=== PATIENT | female | born 1940 | race Caucasian/White ===

== ENCOUNTER 2019-10-12 17:16 | Inpatient (IN) | payer MEDICAID, OTHER ==
[~2019-10-12] VITALS: Ht 170.2 cm; Wt 57.0 kg
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
[2019-10-12 18:13] LABS: MICROSCOPIC INDICATED
[2019-10-12 18:14] LABS: CULTURE INDICATED? YES
[2019-10-12] MEDS ORDERED: SODIUM CHLORIDE 0.9% 1,000ML IVBOLUS ONE (18:30)
[2019-10-12] MEDS ORDERED: SODIUM CHLORIDE FLUSH 10ML SYR IVF ONE (18:30)
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
[2019-10-12 19:05] LABS: ALBUMIN 2.8 g/dL (3.4-5.0); ANION GAP 7 mmol/L (5-15); CALCIUM 8.6 mg/dL (8.5-10.1); CHLORIDE 101 mmol/L (98-107)
[2019-10-12 19:09] LABS: ALANINE AMINOTRANSFERASE 23 U/L (12-78); ALKALINE PHOSPHATASE 160 U/L (45-117); BASOPHILS # (AUTO) 0.03 x10^3/uL (0-0.1); BASOPHILS % (AUTO) 0 % (0-1); BILIRUBIN,TOTAL 0.7 mg/dL (0.2-1.0); CREATININE 0.86 mg/dL (0.55-1.02); EOSINOPHILS # (AUTO) 0.01 x10^3/uL (0-0.4); EOSINOPHILS % (AUTO) 0 % (1-7); LYMPHOCYTES # (AUTO) 1.29 x10^3/uL (1-3.4); LYMPHOCYTES % (AUTO) 12 % (22-44); MD NO; MEAN CORPUSCULAR HEMOGLOBIN 24.2 pg (27.0-34.8); MEAN CORPUSCULAR HGB CONC 31.9 g/dL (32.4-35.8); MEAN CORPUSCULAR VOLUME 76.1 fL (80-100); MEAN PLATELET VOLUME 8.7 fL (7.4-10.4); MONOCYTES # (AUTO) 0.72 x10^3/uL (0.2-0.8); MONOCYTES % (AUTO) 7 % (2-9); NEUTROPHILS % (AUTO) 81 % (42-75); PLATELET COUNT 203 x10^3/uL (130-400); RED BLOOD COUNT 5.99 x10^6/uL (3.82-5.3); RED CELL DISTRIBUTION WIDTH 22.3 % (9.6-15.2); TOTAL PROTEIN 6.8 g/dL (6.4-8.2)
[2019-10-12] MEDS ORDERED: CEFTRIAXONE PMX 1GM/50ML 50 ML ONE (19:46)
[2019-10-12] MEDS ORDERED: CEFTRIAXONE PMX 1GM/50ML 50 ML IVPB ONE (20:00)
--- NOTE | 2019-10-12 20:00 | NUR ---
DELAY IN ABX START FOR BC
--- NOTE | 2019-10-12 20:22 | NUR ---
OSTOMY CARE COMPLETE. STOMA PINK. NO WOUNDS NOTED. AWAITING BCX2 FOR ABX Addendum: 10/13/19 at 0500 by CANDICE PATIENT PLACED ON [facility]
--- NOTE | 2019-10-12 20:36 | NUR ---
ABX INITIATED. BC X2 DRAWN PRIOR TO ADMIN
--- NOTE | 2019-10-12 21:34 | NUR ---
PT REPORTS "NOT FEELING WELL". FSBS 55. AWAKE/ALERT, GIVEN PO JUICE
[2019-10-12] MEDS: HEPARIN 5,000 UNITS/ML, 1ML SQ SCH (22:00)
[2019-10-12] MEDS ORDERED: BISACODYL 10 MG SUPP PR PRN (22:00)
[2019-10-12] MEDS ORDERED: POLYETHYLENE GLYCOL 17 GM PACKET PO PRN (22:00)
--- NOTE | 2019-10-12 22:13 | NUR ---
PT TOLERATING PO FOOD/FLUIDS, REPEAT FS 111
[2019-10-12] MEDS ORDERED: ACET325T14 PO (22:31)
[2019-10-12] MEDS ORDERED: ATOR80TA PO (22:31)
[2019-10-12] MEDS ORDERED: METO200T47 PO (22:31)
[2019-10-12] MEDS ORDERED: ONDA4TAB7 PO (22:31)
[2019-10-12] MEDS ORDERED: PROM25VI5 PO (22:31)
[2019-10-12] MEDS ORDERED: ASPI-515 PO (22:31)
[2019-10-12] MEDS ORDERED: POLY17PO5 PO (22:31)
[2019-10-12] MEDS ORDERED: INSU100V8 SQ (22:31)
[2019-10-12] MEDS ORDERED: OMEP20TA62 PO (22:31)
[2019-10-12] MEDS ORDERED: GABA300C10 PO (22:31)
[2019-10-12] MEDS ORDERED: OXYC5CAP2 PO (22:31)
[2019-10-12] MEDS ORDERED: DOCU-131 PO (22:31)
[2019-10-12] MEDS ORDERED: EMPA10TA PO (22:31)
[2019-10-12] MEDS ORDERED: INSU100C5 SQ-INSULIN (22:31)
--- NOTE | 2019-10-12 22:32 | NUR ---
PT RESTING W/ EYES CLOSED. EVEN/REGULAR RESPIRATIONS NOTED.
[2019-10-13] MEDS ORDERED: ONDANSETRON 2MG/ML, 2ML ONE ×3 (00:50→13:14)
[2019-10-13] MEDS ORDERED: HEPARIN 5,000 UNITS/ML, 1ML ONE (00:51)
[2019-10-13] MEDS: SODIUM CHLORIDE 0.9% 1,000 ML IV SCH ×2 (00:53→16:57)
[2019-10-13] MEDS: ONDANSETRON 2MG/ML, 2ML IVPush PRN ×4 (00:54→20:30)
--- NOTE | 2019-10-13 00:59 | NUR ---
PT MEDICATED PER EMAR FOR NAUSEA.
--- NOTE | 2019-10-13 01:00 | NUR ---
PT TO ROOM 18 VIA ABRIL FOR HOLD IN ED. REPORT TO AYLIN Bonilla RN
--- NOTE | 2019-10-13 01:13 | NUR ---
REPORT RECEIVED FROM ARIELLE LANDRY. PLAN OF CARE DISCUSSED. PATIENT MOVED FROM ROOM 27 TO 18
--- NOTE | 2019-10-13 02:34 | NUR ---
PATIENT RESTING ON GURNEY, DESAT TO 89% WHILE SLEEPING, PLACED ON 1.5L NC UP TO 99%. RESPIRATIONS EVEN AND UNLABORED. DENIES NEEDS AT THIS TIME
[2019-10-13] MEDS ORDERED: ACETAMINOPHEN 325 MG TABLET ONE ×2 (03:05→11:11)
[2019-10-13] MEDS: ACETAMINOPHEN 325 MG TABLET PO PRN ×3 (03:08→20:22)
--- NOTE | 2019-10-13 03:09 | NUR ---
PATIENT MEDICATED PER EMAR WITH PRN TYLENOL FOR BACK PAIN. TOELRATED WELL. PATIENT REPOSITIONED TO LEFT SIDE LAYING POSITION, DENIES WANTING PILLOW SUPPORT.
--- NOTE | 2019-10-13 04:04 | NUR ---
PATIENT RESTING, RESPIRATIONS EVEN AND UNLABORED. VSS, CALL LIGHT IN REACH
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
[2019-10-13] MEDS: HEPARIN 5,000 UNITS/ML, 1ML SQ SCH ×3 (06:00→21:57)
--- NOTE | 2019-10-13 06:40 | NUR ---
PATIENT GIVEN PRN ZOFRAN FOR NAUSEA
--- NOTE | 2019-10-13 07:06 | NUR ---
REPORT FROM NOC RN, ASSUMED CARE OF PT, VSS. NAD NOTED
--- NOTE | 2019-10-13 07:06 | NUR ---
REPORT GIVEN TO ARIELLE ANDERSON. PLAN OF CARE DISCUSSED.
[2019-10-13 07:46] LABS: ANION GAP 8 mmol/L (5-15); CALCIUM 8.1 mg/dL (8.5-10.1); CHLORIDE 104 mmol/L (98-107)
[2019-10-13 07:48] LABS: CREATININE 0.58 mg/dL (0.55-1.02)
[2019-10-13 07:50] LABS: BASOPHILS # (AUTO) 0.01 x10^3/uL (0-0.1); BASOPHILS % (AUTO) 0 % (0-1); EOSINOPHILS # (AUTO) 0.04 x10^3/uL (0-0.4); EOSINOPHILS % (AUTO) 0 % (1-7); LYMPHOCYTES # (AUTO) 0.75 x10^3/uL (1-3.4); LYMPHOCYTES % (AUTO) 9 % (22-44); MD NO; MEAN CORPUSCULAR HEMOGLOBIN 24.5 pg (27.0-34.8); MEAN CORPUSCULAR HGB CONC 31.9 g/dL (32.4-35.8); MEAN CORPUSCULAR VOLUME 76.8 fL (80-100); MEAN PLATELET VOLUME 8.3 fL (7.4-10.4); MONOCYTES # (AUTO) 0.39 x10^3/uL (0.2-0.8); MONOCYTES % (AUTO) 5 % (2-9); NEUTROPHILS # (AUTO) 6.73 x10^3/uL (1.8-6.8); NEUTROPHILS % (AUTO) 85 % (42-75); PLATELET COUNT 196 x10^3/uL (130-400); RED BLOOD COUNT 5.93 x10^6/uL (3.82-5.3); RED CELL DISTRIBUTION WIDTH 21.9 % (9.6-15.2)
[2019-10-13] MEDS: SENNA/DOCUSATE TABLET PO SCH (08:06)
--- NOTE | 2019-10-13 08:27 | NUR ---
BREAK RN: PT TRANSFERED TO HOSPITAL BED. RESTING IN ROOM. EATING BREAKFAST. DENIES FURTHER NEEDS.
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
--- NOTE | 2019-10-13 14:03 | NUR ---
TASK RN, COVERING MEAL BREAK. PT REQUESTING GLUCOSE CHECK. FS 283. PT STATES SHE IS NORMALLY ON A SLIDING SCALE INSULIN AT HOME. REVIEW OF ORDERS, NO ORDER FOR INSULIN. DR PALACIOS CALLED, AWAITING SS INSULIN ORDERS.
[2019-10-13] MEDS ORDERED: TEMPLATE NON-FORMULARY MED. (Oxycodone Hcl** 5 MG) PO SCH (14:30)
[2019-10-13] MEDS ORDERED: PROMETHAZINE HCL 25 MG PO SCH (14:30)
[2019-10-13] MEDS ORDERED: GABAPENTIN 300 MG CAPSULE PO SCH (16:00)
--- NOTE | 2019-10-13 16:13 | NUR ---
REPORT GIVEN TO RECIEVING RN, AWAITING TRANSPORT
[2019-10-13 16:52] VITALS: BP 122/74
[2019-10-13] MEDS ORDERED: GABAPENTIN 100 MG CAPSULE ONE (16:55)
[2019-10-13] MEDS: GABAPENTIN 100 MG CAPSULE PO SCH ×2 (16:57→20:21)
[2019-10-13] MEDS: INSULIN LISPRO 100 UNITS/ML, PEN SQ-INSULIN SCH ×2 (18:13→21:00)
[2019-10-13 20:11] VITALS: BP 169/88
[2019-10-13] MEDS: ATORVASTATIN 80 MG TABLET PO SCH (20:21)
[2019-10-13] MEDS: METOPROLOL SUCCINATE 25 MG TAB.ER.24H PO SCH (20:22)
[2019-10-13] MEDS: OMEPRAZOLE 20 MG CAPSULE.DR PO SCH (20:22)
[2019-10-13] MEDS: CEFTRIAXONE PMX 1GM/50ML 50 ML IV SCH (20:47)
[2019-10-14 01:37] VITALS: BP 159/76
[2019-10-14] MEDS: ONDANSETRON 2MG/ML, 2ML IVPush PRN ×2 (03:00→08:35)
[2019-10-14] MEDS: ACETAMINOPHEN 325 MG TABLET PO PRN (03:00)
[2019-10-14] MEDS: HEPARIN 5,000 UNITS/ML, 1ML SQ SCH ×2 (05:46→12:47)
[2019-10-14] MEDS: SODIUM CHLORIDE 0.9% 1,000 ML IV SCH ×2 (05:46→12:02)
[2019-10-14 08:26] VITALS: BP 163/71
[2019-10-14] MEDS: INSULIN LISPRO 100 UNITS/ML, PEN SQ-INSULIN SCH ×4 (08:32→20:21)
[2019-10-14] MEDS: GABAPENTIN 100 MG CAPSULE PO SCH ×3 (08:47→20:20)
[2019-10-14] MEDS: LISINOPRIL 20 MG TABLET PO SCH ×2 (08:47→20:19)
[2019-10-14] MEDS: OMEPRAZOLE 20 MG CAPSULE.DR PO SCH (08:47)
[2019-10-14] MEDS: ASPIRIN 81 MG TABLET EC PO SCH (08:47)
[2019-10-14] MEDS: METOPROLOL SUCCINATE 25 MG TAB.ER.24H PO SCH ×2 (08:48→20:19)
[2019-10-14] MEDS: SENNA/DOCUSATE TABLET PO SCH (08:48)
[2019-10-14] MEDS ORDERED: INSULIN GLARGINE 100 UNITS/ML, PEN SQ-INSULIN SCH ×2 (09:00→21:00)
[2019-10-14] MEDS: PANTOPRAZOLE 40 MG IV IVPush SCH (11:42)
[2019-10-14] MEDS ORDERED: SODIUM CHLORIDE 0.9% 1,000 ML IV SCH (12:00)
[2019-10-14] MEDS: ENOXAPARIN 40 MG/0.4 ML SQ SCH (14:00)
[2019-10-14 14:41] VITALS: BP 173/75
[2019-10-14] MEDS ORDERED: PROMETHAZINE 25MG TABLET PO PRN (17:00)
[2019-10-14] MEDS ORDERED: OXYcodone IR 5MG TABLET PO PRN (17:00)
[2019-10-14 19:31] VITALS: BP 155/56
[2019-10-14] MEDS: CEFTRIAXONE PMX 1GM/50ML 50 ML IV SCH (19:45)
[2019-10-14] MEDS: ATORVASTATIN 80 MG TABLET PO SCH (20:19)
[2019-10-15 04:12] VITALS: BP 170/100
[2019-10-15 04:16] VITALS: BP 144/72
[2019-10-15] MEDS: ONDANSETRON 2MG/ML, 2ML IVPush PRN ×2 (04:22→17:02)
[2019-10-15 06:06] LABS: BASOPHILS # (AUTO) 0.02 x10^3/uL (0-0.1); BASOPHILS % (AUTO) 0 % (0-1); EOSINOPHILS % (AUTO) 3 % (1-7); LYMPHOCYTES # (AUTO) 0.79 x10^3/uL (1-3.4); LYMPHOCYTES % (AUTO) 14 % (22-44); MD NO; MEAN CORPUSCULAR HEMOGLOBIN 24.2 pg (27.0-34.8); MEAN CORPUSCULAR HGB CONC 31.5 g/dL (32.4-35.8); MEAN CORPUSCULAR VOLUME 76.8 fL (80-100); MEAN PLATELET VOLUME 7.8 fL (7.4-10.4); MONOCYTES # (AUTO) 0.48 x10^3/uL (0.2-0.8); MONOCYTES % (AUTO) 8 % (2-9); NEUTROPHILS # (AUTO) 4.34 x10^3/uL (1.8-6.8); NEUTROPHILS % (AUTO) 75 % (42-75); PLATELET COUNT 214 x10^3/uL (130-400); RED BLOOD COUNT 5.75 x10^6/uL (3.82-5.3); RED CELL DISTRIBUTION WIDTH 21.5 % (9.6-15.2)
[2019-10-15 06:11] LABS: ALANINE AMINOTRANSFERASE 16 U/L (12-78); ALBUMIN 2.3 g/dL (3.4-5.0); ANION GAP 6 mmol/L (5-15); CALCIUM 7.9 mg/dL (8.5-10.1); CHLORIDE 107 mmol/L (98-107); CREATININE 0.55 mg/dL (0.55-1.02)
[2019-10-15 06:14] LABS: ALKALINE PHOSPHATASE 122 U/L (45-117); BILIRUBIN,TOTAL 1.1 mg/dL (0.2-1.0); TOTAL PROTEIN 5.4 g/dL (6.4-8.2)
[2019-10-15 07:24] VITALS: BP 155/70
[2019-10-15] MEDS: INSULIN LISPRO 100 UNITS/ML, PEN SQ-INSULIN SCH ×4 (07:43→20:39)
[2019-10-15] MEDS: PANTOPRAZOLE 40 MG IV IVPush SCH (09:53)
[2019-10-15] MEDS: METOPROLOL SUCCINATE 25 MG TAB.ER.24H PO SCH ×2 (09:57→20:33)
[2019-10-15] MEDS: LISINOPRIL 20 MG TABLET PO SCH ×2 (09:58→20:34)
[2019-10-15] MEDS: SENNA/DOCUSATE TABLET PO SCH (09:58)
[2019-10-15] MEDS: GABAPENTIN 100 MG CAPSULE PO SCH ×3 (09:58→20:34)
[2019-10-15] MEDS: ASPIRIN 81 MG TABLET EC PO SCH (09:59)
[2019-10-15] MEDS: INSULIN GLARGINE 100 UNITS/ML, PEN SQ-INSULIN SCH ×2 (10:00→20:35)
[2019-10-15 10:05] VITALS: BP 152/74
[2019-10-15] MEDS: SODIUM CHLORIDE 0.9% 1,000 ML IV SCH (11:18)
[2019-10-15 14:00] VITALS: BP_SYST 161; BP_SYST 170; BP_DIAS 73; BP_DIAS 75
[2019-10-15] MEDS: ENOXAPARIN 40 MG/0.4 ML SQ SCH (14:00)
[2019-10-15 19:31] VITALS: BP 152/80
[2019-10-15] MEDS: CEFTRIAXONE PMX 1GM/50ML 50 ML IV SCH (20:11)
[2019-10-15] MEDS: ATORVASTATIN 80 MG TABLET PO SCH (20:34)
[2019-10-15] MEDS: ACETAMINOPHEN 325 MG TABLET PO PRN (23:19)
[2019-10-16] MEDS: SODIUM CHLORIDE 0.9% 1,000 ML IV SCH ×2 (00:53→13:15)
[2019-10-16 00:55] VITALS: BP 126/62
[2019-10-16] MEDS: INSULIN LISPRO 100 UNITS/ML, PEN SQ-INSULIN SCH ×4 (07:00→20:11)
[2019-10-16 08:05] VITALS: BP 116/68
[2019-10-16] MEDS: LISINOPRIL 20 MG TABLET PO SCH ×2 (09:31→20:10)
[2019-10-16] MEDS: SENNA/DOCUSATE TABLET PO SCH (09:31)
[2019-10-16] MEDS: ASPIRIN 81 MG TABLET EC PO SCH (09:31)
[2019-10-16] MEDS: PANTOPRAZOLE 40 MG IV IVPush SCH (09:31)
[2019-10-16] MEDS: GABAPENTIN 100 MG CAPSULE PO SCH ×3 (09:31→20:10)
[2019-10-16] MEDS: METOPROLOL SUCCINATE 25 MG TAB.ER.24H PO SCH ×2 (09:31→20:09)
[2019-10-16] MEDS: INSULIN GLARGINE 100 UNITS/ML, PEN SQ-INSULIN SCH (09:32)
[2019-10-16 12:03] VITALS: BP 159/82
[2019-10-16] MEDS ORDERED: LISI-170 PO (13:11)
[2019-10-16] MEDS ORDERED: CEPH-368 PO (13:11)
[2019-10-16] MEDS ORDERED: AMLO-150 PO (13:11)
[2019-10-16] MEDS: AMLODIPINE 5 MG TABLET PO SCH (13:16)
[2019-10-16] MEDS: ENOXAPARIN 40 MG/0.4 ML SQ SCH (13:16)
[2019-10-16] MEDS ORDERED: INSU100V8 SQ (13:19)
[2019-10-16] MEDS: ACETAMINOPHEN 325 MG TABLET PO PRN ×2 (16:06→20:18)
[2019-10-16 19:22] VITALS: BP 124/65
[2019-10-16 20:08] VITALS: BP 124/60
[2019-10-16] MEDS: ATORVASTATIN 80 MG TABLET PO SCH (20:09)
[2019-10-16] MEDS: CEFTRIAXONE PMX 1GM/50ML 50 ML IV SCH (20:24)
[2019-10-16] MEDS ORDERED: INSULIN GLARGINE 100 UNITS/ML, PEN SQ-INSULIN SCH (21:00)
[2019-10-17 01:27] VITALS: BP 155/78
[2019-10-17] MEDS: SODIUM CHLORIDE 0.9% 1,000 ML IV SCH (03:05)
[2019-10-17 06:45] VITALS: BP 151/73
[2019-10-17] MEDS: PANTOPRAZOLE 40 MG IV IVPush SCH (07:51)
[2019-10-17] MEDS: AMLODIPINE 5 MG TABLET PO SCH (07:56)
[2019-10-17] MEDS: LISINOPRIL 20 MG TABLET PO SCH (07:56)
[2019-10-17] MEDS: SENNA/DOCUSATE TABLET PO SCH (07:56)
[2019-10-17] MEDS: ASPIRIN 81 MG TABLET EC PO SCH (07:56)
[2019-10-17] MEDS: METOPROLOL SUCCINATE 25 MG TAB.ER.24H PO SCH (07:56)
[2019-10-17] MEDS: GABAPENTIN 100 MG CAPSULE PO SCH (07:57)
[2019-10-17] MEDS: INSULIN LISPRO 100 UNITS/ML, PEN SQ-INSULIN SCH ×2 (07:58→12:28)
[2019-10-17] MEDS: ACETAMINOPHEN 325 MG TABLET PO PRN (08:51)
[2019-10-17] MEDS ORDERED: INSULIN GLARGINE 100 UNITS/ML, PEN SQ-INSULIN SCH (09:00)
[2019-10-17] MEDS: ONDANSETRON 2MG/ML, 2ML IVPush PRN (11:11)
[2019-10-17 12:34] VITALS: BP 126/73
== END 2019-10-17 14:56 | DRG 74 ==
LOC: ED 21:49 → EDIP 22:22 → 3N 10-13 16:22
PROVIDERS: ADMIT Internal Medicine; ATTEND Hospitalist
PROC: 0T9B70Z Drainage of Bladder with Drainage Device, Via Natural or Artificial Opening (ICD-10-PCS; principal; 2019-10-12)
DX: E11.43 Type 2 diabetes mellitus with diabetic autonomic (poly)neuropathy (principal); N39.0 Urinary tract infection, site not specified; E87.1 Hypo-osmolality and hyponatremia; R64 Cachexia; G82.22 Paraplegia, incomplete; Z68.1 Body mass index [BMI] 19.9 or less, adult; B37.89 Other sites of candidiasis; E86.0 Dehydration; K31.84 Gastroparesis; E78.5 Hyperlipidemia, unspecified; Z60.2 Problems related to living alone; Z66 Do not resuscitate; L89.90 Pressure ulcer of unspecified site, unspecified stage; B96.4 Proteus (mirabilis) (morganii) as the cause of diseases classified elsewhere; B96.20 Unspecified Escherichia coli [E. coli] as the cause of diseases classified elsewhere; K21.9 Gastro-esophageal reflux disease without esophagitis; D50.9 Iron deficiency anemia, unspecified; J44.9 Chronic obstructive pulmonary disease, unspecified; I10 Essential (primary) hypertension; I25.10 Atherosclerotic heart disease of native coronary artery without angina pectoris; Z93.3 Colostomy status; Z79.4 Long term (current) use of insulin; Z87.440 Personal history of urinary (tract) infections; I25.2 Old myocardial infarction; Z90.49 Acquired absence of other specified parts of digestive tract; Z90.710 Acquired absence of both cervix and uterus; Z80.9 Family history of malignant neoplasm, unspecified; Z79.899 Other long term (current) drug therapy; Z88.0 Allergy status to penicillin; Z88.5 Allergy status to narcotic agent
CPT/HCPCS: 36415; 74176; 80048; 80053; 81001; 82728; 82962; 83036; 83540; 83550; 83605; 83690; 84145; 85025; 87040; 87077; 87086; 87186; G0378; J0696; J1644; J2405; C9113; J1815; J7030

== ENCOUNTER 2021-04-22 16:04 | Emergency (ER) | payer MEDICAID, MEDICARE ==
[~2021-04-22] VITALS: Ht 170.2 cm; Wt 65.0 kg
[~2021-04-22 16:04] MED LIST: ACET325T14 PO; ACET325T26 PO; AMLO-150 PO; ASPI-963 PO; ASPI81TA45 PO; ATOR-2 PO; ATOR80TA PO; CARV3.1212 PO; CEFD300C37 PO; CEFT1PIG IV; CEPH-368 PO; DIPH25TA65 PO; DOCU-131 PO; DOXY100T PO; EMPA10TA PO; ERTA1VIA4 IV; FOSF3PAC PO; GABA300C10 PO; INSU100C5 SQ-INSULIN; INSU100I11 SQ-INSULIN; INSU100V13 SQ; INSU100V8 SQ; LISI-170 PO; LISI5TAB7 PO; MAGN400O7 PO; METO200T47 PO; METO5TAB57 PO; OMEP20TA62 PO; ONDA4TAB7 PO; OXYC5CAP2 PO; PANT40TA6 PO; POLY17PO5 PO; PROM25VI5 PO
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
[2021-04-22 16:55] LABS: BASOPHILS % (AUTO) 1 % (0-1); EOSINOPHILS % (AUTO) 2 % (1-7); LYMPHOCYTES % (AUTO) 11 % (22-44); MEAN CORPUSCULAR HEMOGLOBIN 24.1 pg (27.0-34.8); MEAN CORPUSCULAR HGB CONC 31.2 g/dL (32.4-35.8); MEAN PLATELET VOLUME 7.4 fL (7.4-10.4); MONOCYTES % (AUTO) 8 % (2-9); NEUTROPHILS % (AUTO) 79 % (42-75); PLATELET COUNT 192 x10^3/uL (130-400); RED BLOOD COUNT 5.35 x10^6/uL (3.82-5.3); RED CELL DISTRIBUTION WIDTH 18.1 % (9.6-15.2)
--- NOTE | 2021-04-22 17:00 | NUR ---
pt placed on 2l o2 due to desating on RA. pt currently sating 96% on 2l per n/c
[2021-04-22 17:03] LABS: ALANINE AMINOTRANSFERASE 21 U/L (12-78); ALBUMIN 2.5 g/dL (3.4-5.0); ANION GAP 8 mmol/L (5-15); CALCIUM 8.1 mg/dL (8.5-10.1); CHLORIDE 105 mmol/L (98-107); CREATININE 0.75 mg/dL (0.55-1.02)
[2021-04-22 17:06] LABS: ALKALINE PHOSPHATASE 118 U/L (45-117); BILIRUBIN,TOTAL 0.6 mg/dL (0.2-1.0); TOTAL PROTEIN 5.9 g/dL (6.4-8.2)
--- NOTE | 2021-04-22 18:04 | NUR ---
PT DCd. PT TO RETURN TO [facility] BY [facility]. PT ABLE TO SIGN TRANSFER CONCENT FORM. THROUGHPUT RN AWARE.
--- NOTE | 2021-04-22 18:10 | NUR ---
REPORT TO JAMES GUZMÁN AT [facility]
--- NOTE | 2021-04-22 19:11 | NUR ---
RECIEVED REPORT FROM ARIELLE COLEMAN. MARIA. YOEL. SU [facility] FOR TRANSPORTATION. WILL CONTINUE TO MONITOR.
[2021-04-22 21:05] VITALS: BP 154/80
== END 2021-04-22 21:08 ==
LOC: MERGE 16:04 → ED 16:34
DX: R10.84 Generalized abdominal pain (principal); I10 Essential (primary) hypertension; E11.9 Type 2 diabetes mellitus without complications; E78.5 Hyperlipidemia, unspecified; K21.9 Gastro-esophageal reflux disease without esophagitis; I25.2 Old myocardial infarction; Z90.49 Acquired absence of other specified parts of digestive tract; Z87.891 Personal history of nicotine dependence; I25.10 Atherosclerotic heart disease of native coronary artery without angina pectoris
CPT/HCPCS: 36415; 80053; 83690; 85025; 99283; 99285